=== PATIENT | male | born 1950 | race Two or more races ===

== ENCOUNTER 2024-04-04 10:44 | Outpatient (CLI) | payer OTHER | END 2024-04-04 11:56 | disposition home or self-care (01) | LOC: RAD 10:44 | PROVIDERS: ATTEND Orthopaedic Surgery | DX: M54.2 Cervicalgia (principal) ==

== ENCOUNTER 2024-04-04 12:35 | Outpatient (CLI) | payer OTHER | END 2024-04-04 12:36 | disposition home or self-care (01) | LOC: NUCLEAR 12:35 | PROVIDERS: ATTEND Orthopaedic Surgery | DX: M81.0 Age-related osteoporosis without current pathological fracture (principal) ==

== ENCOUNTER 2024-04-24 07:21 | Outpatient (CLI) | payer OTHER | END 2024-04-24 07:27 | disposition home or self-care (01) | LOC: MRI 07:21 | PROVIDERS: ATTEND Internal Medicine Gastroenterology | DX: Q45.3 Other congenital malformations of pancreas and pancreatic duct (principal); R86.2 Abnormal level of other drugs, medicaments and biological substances in specimens from male genital organs | CPT/HCPCS: 74183; Q9965; 74181 ==

== ENCOUNTER 2024-05-11 06:34 | Outpatient (CLI) | payer OTHER ==
[2024-05-11 08:30] LABS: ALBUMIN 3.9 gm/dL (3.4-5.0); BILIRUBIN TOTAL 0.77 mg/dL (0.3-1.2); CALCIUM 9.3 mg/dL (8.5-10.1); CREATININE SERUM 1.19 mg/dL (0.70-1.30); GFR 59.59; GLOBULINA 3.3 G/DL (2.4-3.5); MAGNESIUM 2.1 mg/dL (1.8-2.4); PHOSPHOROUS 3.6 mg/dL (2.5-4.9); POTASSIUM 4.26 mEq/L (3.5-5.1); TOTAL PROTEIN 7.2 gm/dL (6.4-8.2)
[2024-05-12 16:05] LABS: CALCIUM IONIZED 5.1 mg/dL (4.5-5.6)
== END 2024-05-11 06:45 | disposition home or self-care (01) ==
LOC: LAB 06:34
PROVIDERS: ATTEND Orthopaedic Surgery
DX: M81.8 Other osteoporosis without current pathological fracture (principal); E88.9 Metabolic disorder, unspecified; E21.3 Hyperparathyroidism, unspecified; E56.1 Deficiency of vitamin K; E55.9 Vitamin D deficiency, unspecified; M85.9 Disorder of bone density and structure, unspecified

== ENCOUNTER → 2024-12-12 | Outpatient (CLI) | payer OTHER | END | disposition home or self-care (01) | LOC: TOM 10:58 | DX: C61 Malignant neoplasm of prostate (principal) ==